=== PATIENT | male | born 1955 | race American Indian/Alaskan Native ===

== ENCOUNTER 2017-09-28 12:12 | Emergency (ER) | payer MEDICAID ==
[2017-09-28] MEDS ORDERED: TYLENOL PR ONE ×2 (12:37)
[2017-09-28] MEDS ORDERED: NACL 0.9% 1000 ML 1,000 ML IV ONE ×3 (13:32→15:30)
[2017-09-28] MEDS ORDERED: NACL 0.9% 1000 ML 1,000 ML ONE (13:33)
[2017-09-28 13:37] LABS: Hematocrit 30.8 % (35.5-45.6); Hemoglobin 9.5 gm/dl (11.8-15.2); Mean Corpuscular HGB Conc 31 % (32-34); Mean Corpuscular Hemoglobin 28 pg (28-32); Mean Corpuscular Volume 90 fl (84-94); Platelet Count 136 K/mm3 (140-440); Red Blood Count 3.42 M/mm3 (3.65-5.03); Red Cell Distribution Width 16.9 % (13.2-15.2)
--- NOTE | 2017-09-28 13:38 | XRay Report ---
Single view chest: History: Possible sepsis. Findings: Normal cardiomediastinal silhouette. Trachea is midline. Large ill-defined linear density right lower lobe with adjacent infiltrates. Normal CP angles. Impression: Large ill-defined linear density right lower lobe probably segmental atelectasis or pleural thickening along the horizontal fissure and/or adjacent infiltrate suggestive of pneumonitis.
[2017-09-28 13:39] VITALS: BP 81/46
[2017-09-28 13:49] LABS: INR 1.29 (0.87-1.13)
--- NOTE | 2017-09-28 13:49 | Emergency Department Report ---
HPI - General Chief Complaint: Altered Mental Status Time Seen by Provider: 09/28/17 12:33 - HPI HPI: 62-year-old -[place] male presents to the emergency department via EMS from [facility] with what they are calling an unresponsive episode. 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 The daughters currently bedside as she was called by [place] and told that he was being sent in to [facility] emergency Department. She says that he is aphasic at baseline but sometimes when he is more alert he will not his head to answer questions and will try to be cooperative. She says that he has been "out of it" for the past few days. Patient himself is a poor historian secondary to his previous strokes and possibly his current medical condition. He did not receive anything for her symptoms prior to presentation or in route. ED Past Medical Hx - Social History Smoking Status: Never Smoker ED Review of Systems ROS: Stated complaint: AMS Other details as noted in HPI Comment: Unobtainable due to pts medical conditions Physical Exam - Physical Exam Vital Signs: Vital Signs 09/28/17 09/28/17 09/28/17 13:10 13:16 13:30 Temperature Pulse Rate 85 86 86 Respiratory 24 26 H 27 H Rate Blood Pressure 81/46 81/46 Blood Pressure [Right] O2 Sat by Pulse 96 96 99 Oximetry 09/28/17 13:39 Temperature 101.6 F H Pulse Rate 86 Respiratory 27 H Rate Blood Pressure Blood Pressure 81/46 [Right] O2 Sat by Pulse 99 Oximetry Physical Exam: GENERAL: Patient is ill-appearing. HENT: Normocephalic. Atraumatic. Patient has moist mucous membranes. EYES: Pupils equal reactive to light bilaterally. NECK: Supple. Trachea is midline. CHEST/LUNGS: Clear to auscultation. There is no respiratory distress noted. HEART/CARDIOVASCULAR: Regular. There is no tachycardia. There is no murmur. ABDOMEN: Abdomen is soft, nontender. Patient has normal bowel sounds. There is no abdominal distention. SKIN: Skin is hot but dry. NEURO: Patient is awake with spontaneous eye opening. He is chronically aphasic. Withdrawal slightly from painful stimuli but has chronic quadriplegia with some movement to the distal upper extremities. MUSCULOSKELETAL: Chronically contracted to all 4 extremities. Radial pulse +2 over 4 bilaterally. ED Course Vital Signs 09/28/17 09/28/17 09/28/17 13:10 13:16 13:30 Temperature Pulse Rate 85 86 86 Respiratory 24 26 H 27 H Rate Blood Pressure 81/46 81/46 Blood Pressure [Right] O2 Sat by Pulse 96 96 99 Oximetry 09/28/17 13:39 Temperature 101.6 F H Pulse Rate 86 Respiratory 27 H Rate Blood Pressure Blood Pressure 81/46 [Right] O2 Sat by Pulse 99 Oximetry - Consultations Consultation #1: I spoke to the substation maintenance technician at [facility] on [address] Doctor Nav Resendiz, who has accepted the patient to his service and says that there is a room ready for him in the ICU in room D253. He has asked for a heparin assay to be sent if possible. He has asked for another liter of IV fluid to be bolused. He has asked for the patient to receive somewhere between 10 and 20 units of IV insulin but to hold the insulin drip for the transportation to [facility]. 09/28/17 15:00 ED Medical Decision Making - Lab Data Result diagrams: 09/28/17 13:27 09/28/17 13:27 - EKG Data -: EKG Interpreted by Me EKG shows normal: sinus rhythm, axis, intervals, QRS complexes (Q waves to the anterior leads), ST-T waves Rate: normal - EKG Data When compared to previous EKG there are: previous EKG unavailable Interpretation: other (sinus rhythm, normal axis, normal intervals, Q wave to the anterior leads) - Radiology Data Radiology results: report reviewed PROCEDURE: CT HEAD/BRAIN WO CON TECHNIQUE: Computerized tomography of the head was performed without contrast material. HISTORY: AMS. Prior history of strokes. Possible sepsis. Hypotensive COMPARISON: No prior studies are available for comparison. FINDINGS: Skull and scalp: Normal. Paranasal sinuses: Normal. Ventricles and subarachnoid spaces: Ventricles are mildly enlarged and there is blood CSF levels and posterior lateral ventricles right greater than left approximately 10 cc volume.. Cerebrum: No evidence of hemorrhage, acute infarction or mass . Cerebellum and brainstem: No evidence of hemorrhage, acute infarction or mass. Vasculature: Normal. Comments: Mild diffuse atrophy. Moderate low attenuated microischemic change periventricular locations.. IMPRESSION: Acute intracranial ventricular blood with CSF blood fluid levels posterior lateral ventricles of indeterminate etiology. Consider followup MRI. Findings discussed with Dr. Paez at 2:23 p.m. 09/28/2017 Transcribed By: WEGerhard Dictated By: MEHDI CROWELL MD Electronically Authenticated By: MEHDI CROWELL MD Signed Date/Time: 09/28/17 1027 Single view chest: History: Possible sepsis. Findings: Normal cardiomediastinal silhouette. Trachea is midline. Large ill-defined linear density right lower lobe with adjacent infiltrates. Normal CP angles. Impression: Large ill-defined linear density right lower lobe probably segmental atelectasis or pleural thickening along the horizontal fissure and/or adjacent infiltrate suggestive of pneumonitis. Transcribed By: PTP Dictated By: PRINCESS KILLIAN MD Electronically Authenticated By: PRINCESS KILLIAN MD Signed Date/Time: 09/28/17 1320 - Medical Decision Making Patient presents with some recent altered mental status and a possible unresponsive episode. The daughter also says that he presents with some recent hypotension and elevated blood sugar. Patient does have some hypotension with a systolic blood pressure of about 80. It has come up into the 90s with a liter of IV fluid. Patient is critically ill with a blood sugar of 650, hypernatremia of 170, lactic acidosis, acute kidney injury with a GFR of 22, and what appears to be sepsis and/or septic shock. Blood and urine cultures were sent and the patient was started empirically on antibiotics. He will receive some IV insulin and has gotten over 1 L of IV fluid resuscitation thus far. CT of the head was done due to his history of previous CVA and his altered mental status that came back showing some acute intracranial bleeding in the posterior lateral ventricles. Since we do not have neurosurgery available here, I contacted [facility], and the patient has been accepted to [facility] to the ICU to the service of Dr. Nav Resendiz. The lab work, CT scan, and the patient's chart will be copied and sent along with the patient. The patient's family has been updated regarding the results and the plan for transportation and they understand and agree to the plan. - Differential Diagnosis hemorrhagic CVA, sepsis, septic shock, DKA, HHNK, electrolyte abnormalities Critical Care Time: Yes Critical care time in (mins) excluding proc time.: 35 Critical care attestation.: If time is entered above; I have spent that time in minutes in the direct care of this critically ill patient, excluding procedure time. Critical care time was spent on this patient during his initial evaluation, multiple re-evaluations , resuscitation secondary to septic shock, ordering and interpretation of labs and imaging, discussion with the radiologist, discussion with the accepting substation maintenance technician, and discussion with the patient's family. Critical Care Time: 35 minutes ED Disposition Clinical Impression: Intracranial bleed, Hyperglycemia, Hypernatremia, Lactic acidosis Sepsis Qualifiers: Sepsis type: sepsis due to unspecified organism Qualified Code(s): A41.9 - Sepsis, unspecified organism Renal failure Qualifiers: Renal failure chronicity: acute Acute renal failure type: unspecified Qualified Code(s): N17.9 - Acute kidney failure, unspecified Hypotension Qualifiers: Hypotension type: unspecified hypotension type Qualified Code(s): I95.9 - Hypotension, unspecified Disposition: DC/TX-70 ANOTHER TYPE HLTHCARE Is pt being admited?: No Condition: Serious Referrals: PRIMARY CARE, [Primary Care Provider] - 3-5 Days Time of Disposition: 15:05
[2017-09-28 13:57] LABS: Alanine Aminotransferase 17 units/L (7-56); Albumin 2.1 g/dL (3.9-5); BUN/Creatinine Ratio 33; Blood Urea Nitrogen 111 mg/dL (9-20); Calcium 8.7 mg/dL (8.4-10.2); Hemolysis Index 2
[2017-09-28] MEDS ORDERED: ZOSYN/NS 4.5GM/100ML 4.5 GM/100 ML VIAL IV ONE (14:00)
[2017-09-28] MEDS ORDERED: D50W (25GM) Syringe IV PRN (14:06)
[2017-09-28 14:13] LABS: Chol/HDL Ratio 10.25 %
[2017-09-28 14:14] LABS: Eosinophils % (Manual) 0 % (0.0-4.3); Total Cells Counted 100
[2017-09-28 14:15] LABS: Anisocytosis 1+; Platelet Estimate Consistent w Auto
[2017-09-28 14:28] LABS: LDL Cholesterol,Direct 3.85999 mg/dL (50-130)
--- NOTE | 2017-09-28 14:32 | Cat Scan Report ---
FINAL REPORT PROCEDURE: CT HEAD/BRAIN WO CON TECHNIQUE: Computerized tomography of the head was performed without contrast material. HISTORY: AMS. Prior history of strokes. Possible sepsis. Hypotensive COMPARISON: No prior studies are available for comparison. FINDINGS: Skull and scalp: Normal. Paranasal sinuses: Normal. Ventricles and subarachnoid spaces: Ventricles are mildly enlarged and there is blood CSF levels and posterior lateral ventricles right greater than left approximately 10 cc volume.. Cerebrum: No evidence of hemorrhage, acute infarction or mass . Cerebellum and brainstem: No evidence of hemorrhage, acute infarction or mass. Vasculature: Normal. Comments: Mild diffuse atrophy. Moderate low attenuated microischemic change periventricular locations.. IMPRESSION: Acute intracranial ventricular blood with CSF blood fluid levels posterior lateral ventricles of indeterminate etiology. Consider followup MRI. Findings discussed with Dr. Paez at 2:23 p.m. 09/28/2017
[2017-09-28 15:00] LABS: Bacteria,Urine 2+ /HPF (Negative); Bilirubin,Urine NEG (Negative); Blood,Urine MOD (Negative); Color,Urine Yellow (Yellow); Urobilinogen,Urine < 2.0 mg/dL (<2.0)
[2017-09-28] MEDS ORDERED: HumuLIN R 100 UNITS in NACL 0.9% 99 ML IV SCH (15:00)
[2017-09-28 15:02] LABS: WBC,Urine > 182.0 /HPF (0.0-6.0)
[2017-09-28] MEDS ORDERED: HumuLIN R IV ONE (15:06)
== END 2017-09-28 16:33 | disposition other institution (70) ==
LOC: ED 12:12
DX: I62.9 Nontraumatic intracranial hemorrhage, unspecified (principal); A41.9 Sepsis, unspecified organism; N17.9 Acute kidney failure, unspecified; I95.9 Hypotension, unspecified; E87.0 Hyperosmolality and hypernatremia; Z86.73 Personal history of transient ischemic attack (TIA), and cerebral infarction without residual deficits; E87.2 Acidosis; R73.9 Hyperglycemia, unspecified
CPT/HCPCS: 36415; 70450; 71045; 80048; 80053; 80061; 81001; 82140; 82805; 83735; 84100; 84484; 85007; 85025; 85610; 85730; 87040; 87086; 93005; 93010; 96361; 96365; 96375; 99291; J2543; J7030; J1815

== ENCOUNTER 2017-11-30 06:23 | Emergency (ER) | payer MEDICAID ==
--- NOTE | 2017-11-30 06:30 | Emergency Department Report ---
ED CPR HPI - General Stated Complaint: CARDIAC ARREST Time Seen by Provider: 11/30/17 06:27 Source: EMS Mode of arrival: Stretcher Limitations: Other (cpr in progress) - History of Present Illness MD Complaint: found unresponsive -: hour(s) (1) Place: [facility] Bystander CPR Performed: Yes AED Applied by Bystander/Manager Psychiatry: No Shock Advised: No Downtime Before ACLS Arrival (mins): 10 Initial Findings in the Field: unresponsive, no respirations, no pulse, systole Treatments Prior to Arrival: other airway device (nasal), chest compressions, epinephrine mgs #, glucose, spinal immobilization - Related Data Allergies Allergy/AdvReac Type Severity Reaction Status Date / Time Iodinated Contrast- Oral and Allergy Unknown Verified 09/28/17 12:27 IV Dye ED Review of Systems ROS: Stated complaint: CARDIAC ARREST Other details as noted in HPI ED Past Medical Hx - Social History Smoking Status: Never Smoker Critical care attestation.: If time is entered above; I have spent that time in minutes in the direct care of this critically ill patient, excluding procedure time. ED Disposition Clinical Impression: Cardiac arrest Disposition: DC-20 Is pt being admited?: No Does the pt Need Aspirin: No Condition: Stable
[2017-11-30] MEDS ORDERED: ADRENALIN ONE (07:00)
[2017-11-30] MEDS ORDERED: SODIUM BICARBONATE IV ONE (07:00)
[2017-11-30] MEDS ORDERED: CALCIUM CHLORIDE IV ONE (07:00)
== END 2017-11-30 09:00 ==
LOC: ED 06:23
DX: I46.9 Cardiac arrest, cause unspecified (principal); I50.9 Heart failure, unspecified; E11.9 Type 2 diabetes mellitus without complications; Z91.041 Radiographic dye allergy status; Z86.73 Personal history of transient ischemic attack (TIA), and cerebral infarction without residual deficits; Z86.718 Personal history of other venous thrombosis and embolism
CPT/HCPCS: 92950; 99285; J0171